=== PATIENT | female | born 1945 | race Caucasian/White ===

== ENCOUNTER 2018-02-02 17:41 | Emergency (ER) | payer MEDICARE ==
[~2018-02-02] VITALS: Ht 167.6 cm; Wt 64.4 kg
[~2018-02-02 17:41] MED LIST: HYDMOR2 PO; IBUP600 PO; LORA10; ONDA4ODT MM; ONDA4ODT PO
[2018-02-02 18:30] LABS: BASOPHILS ABSOLUTE AUTO 0.06 K/mm3 (0.00-0.23); BASOPHILS PERCENT AUTO 1 % (0-2); EOSINOPHILS ABSOLUTE AUTO 0.15 K/mm3 (0.00-0.68); EOSINOPHILS PERCENT AUTO 3 % (0-6); Hematocrit 20.2 % (33.0-51.0); IMMATURE GRAN ABSOLUTE AUTO 0.01 K/mm3 (0.00-0.10); IMMATURE GRAN PERCENT AUTO 0 % (0-1); LYMPHOCYTES ABSOLUTE AUTO 1.64 K/mm3 (0.84-5.20); LYMPHOCYTES PERCENT AUTO 29 % (21-46); MONOCYTES ABSOLUTE AUTO 0.95 K/mm3 (0.16-1.47); MONOCYTES PERCENT AUTO 17 % (4-13); Mean Corpuscular HGB 13.7 pg (26.0-34.0); Mean Corpuscular HGB Conc 24.3 g/dL (31.5-36.5); Mean Corpuscular Volume 57 fL (80-100); Mean Platelet Volume 9.5 fL (9.1-12.4); NEUTROPHILS ABSOLUTE AUTO 2.89 K/mm3 (1.96-9.15); NEUTROPHILS PERCENT AUTO 51 % (41-73); NRBC ABSOLUTE 0.02 K/mm3 (0.00-0.02); NRBC Auto 0.4 /100 WBC (0.0-0.2); Platelet Count 479 K/mm3 (150-400); RDW Coefficient Variation 22.8 % (11.7-14.2); RDW Standard Deviation 44.2 fL (35.1-46.3); Red Blood Cell Count 3.57 M/mm3 (3.80-5.20)
[2018-02-02 18:33] LABS: Hemoglobin 4.9 g/dL (11.5-16.0)
[2018-02-02 18:41] LABS: Albumin, Blood 3.9 g/dL (3.4-5.0); Bilirubin, Total 0.7 mg/dL (0.1-1.0); Bun/Creatinine Ratio 11.1 (12.0-20.0); Calcium, Blood 8.3 mg/dL (8.5-10.1); Creatinine, Blood 1.08 mg/dL (0.40-1.00); Globulin, Blood 3.8 g/dL (2.2-4.0); Potassium, Blood 3.8 mmol/L (3.5-5.5); Total Protein, Blood 7.7 g/dL (6.4-8.2)
[2018-02-02] MEDS ORDERED: Ferrous Glucon324 MG PO (19:26)
[2018-02-02 23:25] LABS: Calcium, Ionized (POC) 1.03 mmol/L (1.10-1.46); Chloride (POC) 106 mmol/L (98-108); Glucose (ISTAT POC) 89 mg/dL (70-99); Hemoglobin (POC) 8.2 g/dL (12.0-16.0); Sodium (POC) 141 mmol/L (135-148); Total CO2 (POC) 22 mmol/L (21-32)
== END 2018-02-02 23:31 | disposition home or self-care (01) ==
LOC: ER 17:41
PROVIDERS: Emergency Medicine
DX: D50.9 Iron deficiency anemia, unspecified (principal); Z88.5 Allergy status to narcotic agent; Z79.899 Other long term (current) drug therapy
CPT/HCPCS: 36415; 36430; 71046; 80047; 80053; 85014; 85025; 86850; 86900; 86901; 86923; 93005; 93010; 99284-25; J7030; P9016

== ENCOUNTER 2021-07-15 08:00 | Day surgery (SDC) | payer MEDICARE ==
[~2021-07-15 08:00] MED LIST changes: +Acetaminophen650 M1 PO; +CEFD300 PO; +Ferrous Glucon324 MG PO
[2021-07-15] MEDS ORDERED: VITAMIN D310 MC4 PO (08:45)
== END 2021-07-15 23:59 | disposition home or self-care (01) ==
LOC: ATC 08:00
DX: D64.9 Anemia, unspecified (principal)
CPT/HCPCS: 36415; 36430; 86850; 86900; 86901; 86923; J7050; P9016

== ENCOUNTER 2022-05-15 15:38 | Emergency (ER) | payer MEDICARE ==
[~2022-05-15] VITALS: Ht 167.6 cm; Wt 66.2 kg
[~2022-05-15 15:38] MED LIST changes: +VITAMIN D310 MC4 PO
== END 2022-05-15 22:45 | disposition home or self-care (01) ==
LOC: ER 15:38
DX: D64.9 Anemia, unspecified (principal); Z88.5 Allergy status to narcotic agent; Z79.899 Other long term (current) drug therapy
CPT/HCPCS: 36415; 86850; 86900; 86901; 86923; J7030; P9016

== ENCOUNTER 2022-10-24 02:11 | Day surgery (SDC) | payer MEDICARE ==
[2022-10-24 14:58] VITALS: BP 164/82
[2022-10-24] MEDS ORDERED: NAPR220 PO (15:07)
[2022-10-24 15:17] VITALS: BP 155/77
[2022-10-24 16:15] VITALS: BP 162/84
[2022-10-24 16:36] VITALS: BP 176/90
[2022-10-24 16:54] VITALS: BP 161/99
[2022-10-24 17:54] VITALS: BP 169/85
== END 2022-10-24 18:15 | disposition home or self-care (01) ==
LOC: ATC 02:11
DX: D50.9 Iron deficiency anemia, unspecified (principal); D75.839 Thrombocytosis, unspecified; R68.89 Other general symptoms and signs; I12.9 Hypertensive chronic kidney disease with stage 1 through stage 4 chronic kidney disease, or unspecified chronic kidney disease; N18.31 Chronic kidney disease, stage 3a; M17.0 Bilateral primary osteoarthritis of knee
CPT/HCPCS: 36415; 36430; 86850; 86900; 86901; 86923; J7050; P9016

== ENCOUNTER 2023-02-04 13:06 | Day surgery (SDC) | payer MEDICARE ==
[2023-02-04] VITALS (7 sets, daily range): BP systolic 114–166; BP diastolic 76–97
[~2023-02-04 13:06] MED LIST changes: +NAPR220 PO
== END 2023-02-04 17:46 | disposition home or self-care (01) ==
LOC: ATC 13:06
DX: D50.9 Iron deficiency anemia, unspecified (principal); I12.9 Hypertensive chronic kidney disease with stage 1 through stage 4 chronic kidney disease, or unspecified chronic kidney disease; N18.32 Chronic kidney disease, stage 3b; E78.49 Other hyperlipidemia; Z88.5 Allergy status to narcotic agent; Z91.048 Other nonmedicinal substance allergy status
CPT/HCPCS: 36415; 36430; 86850; 86870; 86880; 86900; 86901; 86902; 86905; 86922; J7050; P9016

== ENCOUNTER → 2023-05-31 | Outpatient (CLI) | payer MEDICARE ==
[2023-05-31 18:13] LABS: Source, Urine Voided
[2023-05-31 20:26] LABS: Bilirubin, Urine Neg (Neg); Blood, Urine 5+ (Neg); Glucose Qualitative, Urine Neg (Neg); Ketones, Urine Neg (Neg); Leukocyte Esterase, Urine 3+ (Neg); Nitrite, Urine Neg (Neg); Protein, Urine 3+ (Neg); Urobilinogen, Urine NORM (Normal)
[2023-05-31 20:34] LABS: Appearance, Urine Cloudy (Clear); Color, Urine Yellow (P-Yellow)
[2023-05-31 20:35] LABS: Amorphous Light (0-Heavy); Bacteria Many /hpf; Red Blood Cells, Urine 0-2 /hpf (0-2); Squamous Epithelial Cells Not Seen /hpf (Few); White Blood Cells, Urine TNTC /hpf (0-5)
== END ==
LOC: LAB SHORT 18:11 → LAB 18:11
PROVIDERS: Nurse Practitioner Family
DX: N18.32 Chronic kidney disease, stage 3b (principal); R30.0 Dysuria
CPT/HCPCS: 81001; 82043; 87077; 87086; 87186

== ENCOUNTER → 2023-10-25 | Outpatient (CLI) | payer MEDICARE ==
[~2023-10-25] MED LIST changes: +LORA10ER PO
[2023-10-25 11:21] LABS: Source, Urine Voided
[2023-10-25 14:02] LABS: Creatinine, Urine Random 79.6 mg/dL (27.00-270.00); Protein, Urine Random 62.6 mg/dL (0.0-11.9); Protein/Creat Ratio, Ur Random 0.8
[2023-10-25 14:12] LABS: Appearance, Urine Cloudy (Clear); Bilirubin, Urine Neg (Neg); Blood, Urine 4+ (Neg); Glucose Qualitative, Urine Neg (Neg); Ketones, Urine Neg (Neg); Leukocyte Esterase, Urine 3+ (Neg); Nitrite, Urine Pos (Neg); Protein, Urine 2+ (Neg); Specific Gravity, Urine 1.015 (1.003-1.022); Urobilinogen, Urine NORM (Normal)
[2023-10-25 14:24] LABS: Color, Urine Pale Yellow (P-Yellow)
[2023-10-25 14:26] LABS: White Blood Cells, Urine TNTC /hpf (0-5)
[2023-10-25 14:27] LABS: Amorphous Light (0-Heavy); Bacteria Many /hpf; Granular Casts 0-2 /lpf (0); Squamous Epithelial Cells Few /hpf (Few)
[2023-10-31 23:18] LABS: ALPHA-1 %,URINE 4.7 %; ALPHA-2 %,URINE 10.1 %; BETA GLOBULIN %,URINE 18.2 %; HOURS COLLECTED Random hr; TOTAL VOLUME Random mL
== END | disposition home or self-care (01) ==
LOC: LAB SHORT 11:16 → LAB 11:16 → EDSTATUS 10-16 12:35 → LAB FUT 10-16 12:35
PROVIDERS: Hospitalist
DX: N18.32 Chronic kidney disease, stage 3b (principal); D64.9 Anemia, unspecified
CPT/HCPCS: 81001; 82570; 84156; 84166; 86335; 87077; 87086; 87186

== ENCOUNTER → 2023-12-27 | Outpatient (CLI) | payer MEDICARE ==
[2023-12-27 17:57] LABS: Percent Saturation 24.2 % (15.0-50.0)
== END | disposition home or self-care (01) ==
LOC: LAB SHORT 16:55 → LAB 16:55
PROVIDERS: Internal Medicine Hematology & Oncology
DX: E61.1 Iron deficiency (principal)
CPT/HCPCS: 82728; 83540; 83550

== ENCOUNTER → 2025-03-26 | Outpatient (CLI) | payer MEDICARE ==
[2025-03-26 11:26] LABS: Bilirubin, Urine Neg (Neg); Color, Urine Yellow (P-Yellow); Glucose Qualitative, Urine Neg (Neg); Ketones, Urine Neg (Neg); Leukocyte Esterase, Urine 1+ (Neg); Protein, Urine 2+ (Neg); Specific Gravity, Urine 1.015 (1.003-1.022); Urobilinogen, Urine NORM (Normal)
[2025-03-26 11:52] LABS: White Blood Cells, Urine 50-100 /hpf (0-5)
== END ==
LOC: LAB SHORT 10:20 → LAB 10:20 → LAB FUT 03-25 10:15
PROVIDERS: Hospitalist
DX: N18.32 Chronic kidney disease, stage 3b (principal); D64.9 Anemia, unspecified
CPT/HCPCS: 81001; 87086